=== PATIENT | female | born 1975 ===

== ENCOUNTER 2020-12-21 14:25 | Outpatient (CLI) | payer OTHER ==
[~2020-12-21 14:25] MED LIST: CIPRO500 MG PO; ENDOCET 5/325 T1 TAB PO; INDERAL LA80 MG; TENCON CAPSULE1 CAP; TENCON TABLET1 TAB PO
== END 2020-12-21 14:26 | disposition home or self-care (01) ==
LOC: PPH VACUNA 14:25
DX: Z23 Encounter for immunization (principal)

== ENCOUNTER 2021-01-11 10:20 | Outpatient (CLI) | payer OTHER | END 2021-01-11 10:21 | disposition home or self-care (01) | LOC: PPH VACUNA 10:20 | DX: Z23 Encounter for immunization (principal) ==